=== PATIENT | male | born 1960 | race Caucasian/White ===

== ENCOUNTER 2020-06-12 08:45 | Day surgery (SDC) | payer MEDICAID, OTHER ==
[~2020-06-12 08:45] MED LIST: Lactated Ringers 1,000 ML IV SCH
[2020-06-12] MEDS ORDERED: Propofol 200 MG/20 ML SDV ONE ×2 (08:59→11:20)
[2020-06-12] MEDS ORDERED: fentaNYL 100 MCG/2 ML SDV ONE (08:59)
[2020-06-12] MEDS ORDERED: Albuterol 0.083% 2.5 MG/3 ML Neb Soln NEB ONE (09:52)
[2020-06-12 14:35] VITALS: BP 134/70; PULSE 55
--- NOTE | 2020-06-13 08:15 | OR ---
PRE-OPERATIVE DIAGNOSES: 1. Dysphagia for the past year. 2. Chronic diarrhea. POST-OPERATIVE DIAGNOSES: 1. Moderate antritis. Antral biopsy x2 bites taken. 2. 1 cm sliding-type hiatal hernia noted without any significant esophagitis. 3. Normal-appearing duodenum. Cold biopsy x2 bites taken given his history of chronic diarrhea. PROCEDURE: Esophagogastroduodenoscopy with cold biopsy x2 sites (antrum and duodenum). SURGEON: Gary Kitchen M.D. ANESTHESIA: Monitored anesthesia care. DESCRIPTION OF PROCEDURE: Tono is a 60-year-old male who was brought to the endoscope suite after discussion of risks and benefits (including but not limited to reaction to medication, bleeding, infection, aspiration, perforation). Informed consent was obtained for monitored anesthesia care and esophagogastroduodenoscopy along with possible biopsy and/or dilatation. Pre-procedure exam including oral cavity was unremarkable except for poor dentition. IV, oxygen, and monitors were placed. Patient was placed in the left lateral position and sedation was administered. A bite block was placed gently and scope lightly lubricated and passed through the bite block and over the tongue. Hypopharynx and vocal cords were visualized and unremarkable. There does appear to be some chronic mild inflammation likely from reflux and smoking. Scope was passed through the cricopharynx and into the esophagus. The scope was then passed through the distal esophagus and the GE junction was visualized and photographed. The GE junction was remarkable for a small 1 cm sliding-type hiatal hernia. There was no evidence for any significant esophagitis. Vocal cords were visualized and unremarkable. The scope was advanced into the stomach and gastric perkins was suctioned. Pylorus was identified and intubated and then the scope was advanced to the third portion of the duodenum. The second and third portions of the duodenum were unremarkable. Cold biopsy x2 bites taken given his history of chronic diarrhea. Duodenal bulb was visualized and unremarkable. The scope was brought back into the stomach. The pylorus and the antrum revealed some moderate antritis with red streaking. Biopsies for H. pylori and path were obtained from the antrum using cold forceps x2 bites. The scope was then retroflexed to visualize the angularis, fundus, body, and cardia. These were unremarkable. The stomach was desufflated of air and then the scope was slowly withdrawn, and the esophagus was closely visualized during withdrawal all the way into the posterior pharynx and this was normal. The patient tolerated the procedure well and went to recovery in stable condition. The patient was monitored until at baseline status. Findings and discharge instructions were reviewed and the patient was discharged in good condition. COMPLICATIONS: None. TOTAL TIME: 7 minutes. ESTIMATED BLOOD LOSS: About 1 mL. RECOMMENDATIONS/FOLLOW-UP: I did recommend increasing his omeprazole to 40 mg daily. Also recommended avoidance of NSAIDs and smoking cessation. He would also benefit from limiting or avoiding alcohol intake. Prescription was done for the omeprazole 40 mg daily. We will send letter with path results. I would like to kindly thank Wilbert Arrington for this referral. DMB: 06/12/2020 14:11:50 MODL: 06/12/2020 15:57:15 /[id number]
--- NOTE | 2020-06-13 08:24 | OR ---
PRE-OPERATIVE DIAGNOSES: 1. History of chronic diarrhea for the past couple of years. He does note occasional blood in the stool. 2. Positive family history of colon cancer in mother when she was in her 70s. POST-OPERATIVE DIAGNOSES: 1. Total of 9 polyps removed. a. 3 mm polyp at 85 cm, removed with cold forceps. b. 3 mm polyp at 80 cm, removed with cold forceps. c. 2 mm x2 at 75 cm, removed with cold forceps. d. 4 mm x2 at 60 cm, removed with hot snare. e. 2 mm at 25 cm, removed with cold forceps. f. 9 mm and 4 mm polyps at 20 cm, both removed using hot snare. 2. Minimal left-sided diverticulosis. 3. Mild hemorrhoids. 4. Normal-appearing colonic mucosa and normal-appearing distal ileum. Random biopsies were taken from distal ileum and then randomly throughout the colon. PROCEDURE: Colonoscopy with polypectomy x9 (4 hot snares and 5 cold forceps). Random biopsies also taken from the distal ileum and then randomly throughout each segment of colon including the rectum. SURGEON: Gary Kitchen M.D. ANESTHESIA: Monitored anesthesia care. BOWEL PREP: Good. DESCRIPTION OF PROCEDURE: Tono is a 60-year-old male who was brought to the endoscopy suite after discussing risks and benefits of the procedure. Informed consent was obtained for conscious sedation and colonoscopy with or without biopsy and/or polypectomy. We also discussed possibility of missed lesions. Pre-procedure exam was unremarkable. IV, oxygen, and monitors were placed. The patient was placed in the left lateral decubitus position. Sedation was administered and a digital rectal exam was performed and unremarkable except for some mild hemorrhoids. The colonoscope was passed in the rectum and slowly advanced all the way to the cecum. Cecum was viewed and photographed. Ileocecal valve was intubated and distal ileum was normal in appearance. Cold biopsy x2 bites taken from the distal ileum. Colonoscope was slowly withdrawn, mucosa closely observed in direct circumferential manner. Random colon biopsies were taken from each segment of the colon given the patient's chronic diarrhea. The patient also had numerous polyps, total of 9 as noted above. The ascending colon was otherwise unremarkable. Transverse colon unremarkable. The descending and sigmoid colon revealed some minimal diverticulosis. Retroflexion was performed. Rectal mucosa revealed some mild hemorrhoids which were mildly inflamed. Scope was removed. The patient tolerated the procedure well. The patient was monitored until that baseline status. Discharge instructions were reviewed and the patient was discharged in good condition. COMPLICATIONS: None. TOTAL TIME: 35 minutes. ESTIMATED BLOOD LOSS: 1 to 2 mL. RECOMMENDATIONS/FOLLOW-UP: We will await results of path report to determine ideal followup interval. I would like to kindly thank Wilbert Arrington for this referral. DMB: 06/12/2020 14:16:34 MODL: 06/12/2020 16:09:33 /[id number]
== END 2020-06-12 14:07 | disposition home or self-care (01) ==
LOC: VM.SDS 08:45
PROVIDERS: ATTEND Family Medicine
DX: D12.6 Benign neoplasm of colon, unspecified (principal); K57.30 Diverticulosis of large intestine without perforation or abscess without bleeding; K52.9 Noninfective gastroenteritis and colitis, unspecified; K64.9 Unspecified hemorrhoids; I78.1 Nevus, non-neoplastic; K29.60 Other gastritis without bleeding; K44.9 Diaphragmatic hernia without obstruction or gangrene; E78.2 Mixed hyperlipidemia; J44.9 Chronic obstructive pulmonary disease, unspecified; I10 Essential (primary) hypertension; F17.210 Nicotine dependence, cigarettes, uncomplicated; R05 Cough; Z80.0 Family history of malignant neoplasm of digestive organs; Z01.812 Encounter for preprocedural laboratory examination; Z20.828 Contact with and (suspected) exposure to other viral communicable diseases; Z79.899 Other long term (current) drug therapy
CPT/HCPCS: 43239; 45380; 45385; 87635; J2704; J3010; J7120; 00813; U0002